=== PATIENT | male | born 1975 | race Caucasian/White ===

== ENCOUNTER 2018-07-29 08:21 | Inpatient (IN) | payer BC ==
[2018-07-29 08:28] VITALS: BMI 33.0
[2018-07-29] MEDS ORDERED: FAMOTIDINE 20 MG/50 ML IVPB 20 MG/50 ML MG IVPB ONE ×2 (09:22→09:37)
[2018-07-29] MEDS ORDERED: SUCRALFATE 1 GM TABLET (FP) PO ONE (09:23)
[2018-07-29] MEDS ORDERED: MAG HYDROX/AL HYDROX/SIMETH -MYLANTA- ORAL SUSPENSION PO ONE (09:23)
[2018-07-29] MEDS ORDERED: SODIUM CHLORIDE 1,000 ML IV STA (09:31)
[2018-07-29] MEDS ORDERED: SUCRALFATE 1 GM TABLET (FP) ONE (09:37)
[2018-07-29] MEDS ORDERED: MAG HYDROX/AL HYDROX/SIMETH 30 ML UNIT-DOSE CUP ONE (09:37)
--- NOTE | 2018-07-29 09:41 | PDOC ---
*Physical Exam - Vital Signs Last Vital Signs Temp Pulse Resp BP Pulse Ox 98.9 F 68 16 150/80 98 07/29/18 08:22 07/29/18 09:10 07/29/18 08:22 07/29/18 08:22 07/29/18 09:10 - Physical Exam Comments: 07/29/18 09:41 The patient was examined by [YARON Mcmahon] under my direct supervision. I personally evaluated the patient. I concur with the above findings and the plan of care. ED Treatment Course - LABORATORY CBC & Chemistry Diagram: 07/30/18 06:10 07/30/18 06:10 - Medications Given in the ED: ED Medications Discontinued Medications Generic Name Dose Route Start Last Admin Trade Name Freq PRN Reason Stop Dose Admin Al Hydroxide/Mg Hydroxide 30 ml 07/29/18 09:23 07/29/18 09:39 Mylanta Suspension - PO 07/29/18 09:24 30 ml ONCE ONE Administration Sucralfate 1 gm 07/29/18 09:23 07/29/18 09:39 Carafate - PO 07/29/18 09:24 1 gm ONCE ONE Administration *DC/Admit/Observation/Transfer Diagnosis at time of Disposition: Epigastric abdominal pain, Black stools - Discharge Dispostion Disposition: HOME Condition at time of disposition: Fair - Prescriptions - Referrals - Patient Instructions - Post Discharge Activity
[2018-07-29 09:58] LABS: BASO % 0.5 % (0-2.0); EOS % 0.5 % (0-4.5); HEMOGLOBIN 13.4 GM/dL (11.7-16.9); LYMPH % 10.9 % (8-40); MCHC 33.5 g/dl (32.0-35.9); MEAN CELL VOLUME 92.5 fl (80-96); MEAN PLT VOLUME 7.7 fl (7.5-11.1); NEUT % 80.1 % (42.8-82.8); PLATELET COUNT 213 K/MM3 (134-434); RBC 4.33 M/mm3 (4.00-5.60); RDW 13.1 % (11.9-15.9); WHITE BLOOD COUNT 14.1 K/mm3 (4.0-10.0)
[2018-07-29 09:59] LABS: URINE APPEARANCE CLEAR; URINE BILIRUBIN NEGATIVE (<2.0 mg/dL); URINE COLOR DKYELLOW; URINE GLUCOSE (UA) 3+ (NEGATIVE); URINE KETONE TRACE (NEGATIVE); URINE LEUK ESTERASE NEGATIVE (NEGATIVE); URINE NITRITE NEGATIVE (NEGATIVE); URINE PROTEIN 3+ (NEGATIVE); URINE UROBILINOGEN NEGATIVE mg/dL (0.2-1.0)
[2018-07-29 10:04] LABS: URINE HYALINE CAST 1 /lpf; URINE MUCUS FEW
--- NOTE | 2018-07-29 10:04 | PDOC ---
History of Present Illness - General Chief Complaint: Pain, Acute Stated Complaint: STOMACH PAIN Time Seen by Provider: 07/29/18 08:39 History Source: Patient - History of Present Illness Timing/Duration: reports: other (yesterday) Quality: reports: sharpness Abdominal Pain Onset Location: reports: epigastric Pain Radiation: reports: no radiation Past History - Past Medical History Allergies/Adverse Reactions: Allergies Allergy/AdvReac Type Severity Reaction Status Date / Time No Known Allergies Allergy Verified 07/29/18 08:23 Home Medications: Ambulatory Orders Simvastatin [Zocor -] 10 mg PO DAILY #0 tablet 06/12/12 Apixaban [Eliquis] 5 mg PO BID 07/29/18 Insulin Glargine,Hum.rec.anlog [Lantus Solostar PEN (NF)] 24 units SQ HS Ramipril [Altace] 10 mg PO DAILY 07/29/18 Sitagliptin Phos/Metformin HCl [Janumet 50-1,000 mg Tablet] 1 each PO BID Cardiac Disorders: Yes (P.EMBOLISM AND DVT LEFT GROIN) COPD: No Diabetes: Yes - Suicide/Smoking/Psychosocial Hx Smoking Status: Yes Smoking History: Former smoker Have you smoked in the past 12 months: No Number of Cigarettes Smoked Daily: 2 Information on smoking cessation initiated: No 'Breaking Loose' booklet given: 06/11/12 Hx Alcohol Use: No Substance Use Type: None Hx Substance Use Treatment: No Review of Systems - Review of Systems Constitutional: No: Chills, Fever Respiratory: No: Shortness of Breath Cardiac (ROS): No: Chest Pain, Lightheadedness, Palpitations ABD/GI: No: Nausea, Vomiting : No: Burning, Dysuria *Physical Exam - Vital Signs Last Vital Signs Temp Pulse Resp BP Pulse Ox 98.9 F 68 16 150/80 98 07/29/18 08:22 07/29/18 09:10 07/29/18 08:22 07/29/18 08:22 07/29/18 09:10 - Physical Exam General Appearance: Yes: Appropriately Dressed, Mild Distress HEENT: positive: Normal Voice Neck: positive: Supple Respiratory/Chest: positive: Normal Breath Sounds, Respiratory Distress Cardiovascular: positive: Regular Rate, S1, S2 Gastrointestinal/Abdominal: positive: Normal Bowel Sounds, Tender (sig ttp to epigatrium, no ttp to RUQ), Soft. negative: Distended, Guarding, Rebound Musculoskeletal: negative: CVA Tenderness Integumentary: positive: Dry, Warm Neurologic: positive: Fully Oriented, Alert, Normal Mood/Affect Heart Score/ECG Review - ECG Intrepretation Comment:: 07/29/18 10:31 Twelve-lead EKG was performed and reviewed by me. There is normal sinus rhythm with a normal rate. The axis is normal. The intervals are normal. There are no ST or T wave abnormalities. Impression: Normal twelve-lead EKG ED Treatment Course - LABORATORY CBC & Chemistry Diagram: 07/29/18 09:53 07/29/18 09:53 Medical Decision Making - Medical Decision Making 07/29/18 09:34 42 yo M, unclear psych hx, NIDDM, HTN, HLD, s/p surgery for varicose veins, s/p surgery remotely, DVT, PE, s/p filter, on eliquis, here w/ upper abd pain. Pt developed severe sharp constant epigastric pain yesterday while at work. No CP otherwise and no SOB, n/v palpitation or acute LE pain. Had 1 e/o "black stool" several days ago, no BRBPR, constipation or diarrhea. Denies f/c. No h/o similar pain. Denies excessive ETOH use but admits to frequent NSAID use. No h/ o gallstones or renal stones See exam Possible gastritis/GERD, r/o ACS, less likely PE or dissection -GI cocktail -ekg/cxr/labs r/o other source -reassess 07/29/18 12:49 Labs remarkable for WBC of 14 and guaiac + stool. H/H stable. Case d/w PMD and pt admitted. Dr Conn of GI consulted *DC/Admit/Observation/Transfer Diagnosis at time of Disposition: Epigastric abdominal pain, Black stools - Discharge Dispostion Condition at time of disposition: Fair Decision to Admit order: Yes - Referrals Referrals: Danilo Obrien MD [Primary Care Provider] - - Patient Instructions - Post Discharge Activity
[2018-07-29 10:32] LABS: ALBUMIN 2.9 g/dl (3.4-5.0); ALK PHOS 95 U/L (45-117); ANION GAP 8 MMOL/L (8-16); BILIRUBIN,TOTAL 0.8 mg/dL (0.2-1); BLOOD UREA NITROGEN 13 mg/dL (7-18); CALCIUM 9.1 mg/dL (8.5-10.1); CHLORIDE 100 mmol/L (98-107); CO2 28 mmol/L (21-32); CREATININE 0.9 mg/dL (0.55-1.3); GLUCOSE,RANDOM 219 mg/dL (74-106); LIPASE 631 U/L (73-393); POTASSIUM 4.7 mmol/L (3.5-5.1); SGOT/AST 13 U/L (15-37); SGPT/ALT 24 U/L (13-61); SODIUM 136 mmol/L (136-145); TOT PROT 7.2 g/dl (6.4-8.2)
--- NOTE | 2018-07-29 11:16 | EKG ---
Test Reason : Blood Pressure : / mmHG Vent. Rate : 069 BPM Atrial Rate : 069 BPM P-R Int : 130 ms QRS Dur : 094 ms QT Int : 382 ms P-R-T Axes : -03 028 028 degrees QTc Int : 409 ms NORMAL SINUS RHYTHM NORMAL ECG WHEN COMPARED WITH ECG OF 11-JUN-2012 17:35, NO SIGNIFICANT CHANGE WAS FOUND Confirmed by CASSANDRA OQUENDO MD ([id number]) on 07/29/2018 11:16:18 AM Referred By: Confirmed By:CASSANDRA OQUENDO MD
[2018-07-29] MEDS ORDERED: PANTOPRAZOLE SODIUM 40 MG VIAL IVPUSH ONE (11:28)
[2018-07-29] MEDS ORDERED: PANTOPRAZOLE SODIUM 40 MG/100 ML BAG IVPB ONE (11:46)
[2018-07-29] MEDS ORDERED: morphine CARPU-JECT 4 MG/1 ML DISP.SYRIN IVPUSH ONE (13:05)
[2018-07-29] MEDS ORDERED: morphine SULFATE 4 MG/ML VIAL ONE (13:25)
[2018-07-29] MEDS ORDERED: SODIUM CHLORIDE 1,000 ML IV SCH (17:00)
--- NOTE | 2018-07-29 17:38 | HP ---
Admitting History and Physical - Primary Care Physician PCP: Danilo Obrien - Admission Chief Complaint: epigastric pain History of Present Illness: developed epigastric pain 2 days ago, had one episode of melena, so he stopped eliquis(taken for recurrent DVT) and took 2 aleeves twice daily for pain. pain got worse so he came to er yesterday had brown BM, no blood History Source: Patient Limitations to Obtaining History: No Limitations - Past Medical History Cardiovascular: Yes: HTN, Hyperlipdemia Pulmonary: Yes: Pulmonary Embolus (DVT) Infectious Disease: Yes: MRSA (2005) Endocrine: Yes: Diabetes Mellitus - Past Surgical History Past Surgical History: Yes: Hernia Repair, Vein Stripping/Ligation Additional Past Surgical History: IVC filter 2005 - Smoking History Smoking history: Former smoker Have you smoked in the past 12 months: No Aproximately how many cigarettes per day: 2 - Alcohol/Substance Use Hx Alcohol Use: No History of Substance Use: reports: None - Social History ADL: Independent History of Recent Travel: No Home Medications - Allergies Allergies/Adverse Reactions: Allergies Allergy/AdvReac Type Severity Reaction Status Date / Time No Known Allergies Allergy Verified 07/29/18 08:23 - Home Medications Home Medications: Ambulatory Orders Simvastatin [Zocor -] 10 mg PO DAILY #0 tablet 06/12/12 Apixaban [Eliquis] 5 mg PO BID 07/29/18 Insulin Glargine,Hum.rec.anlog [Lantus Solostar PEN (NF)] 24 units SQ HS Ramipril [Altace] 10 mg PO DAILY 07/29/18 Sitagliptin Phos/Metformin HCl [Janumet 50-1,000 mg Tablet] 1 each PO BID Family Disease History - Family Disease History Family History: Unremarkable Review of Systems - Review of Systems Constitutional: reports: No Symptoms Neck: reports: No Symptoms Cardiovascular: reports: No Symptoms Respiratory: reports: No Symptoms Gastrointestinal: reports: Abdominal Pain (epigastric). denies: Dysphagia, Indigestion, Nausea, Rectal Bleeding, Vomiting, Vomiting Blood Genitourinary: reports: No Symptoms Musculoskeletal: reports: No Symptoms Integumentary: reports: No Symptoms Neurological: reports: No Symptoms Endocrine: reports: No Symptoms Physical Examination Vital Signs: Vital Signs Temperature 100 F H 07/29/18 13:49 Pulse Rate 75 07/29/18 13:49 Respiratory Rate 16 07/29/18 13:49 Blood Pressure 140/77 07/29/18 13:49 O2 Sat by Pulse Oximetry (%) 99 07/29/18 13:49 Constitutional: Yes: Well Nourished, No Distress, Calm Eyes: Yes: EOM Intact HENT: Yes: Normocephalic Neck: Yes: Trachea Midline Cardiovascular: Yes: Regular Rate and Rhythm Respiratory: Yes: CTA Bilaterally Gastrointestinal: Yes: Normal Bowel Sounds, Soft, Abdomen, Obese, Hernia ( ventral), Tenderness, Epigastrium. No: Tenderness, Rebound, Vomiting Musculoskeletal: Yes: WNL Extremities: Yes: Other (both legs with support socks, reported stasis ulcer by patient, refuses to take socks off) Edema: No Peripheral Pulses WNL: Yes Neurological: Yes: WNL ...Motor Strength: WNL Psychiatric: Yes: WNL Labs: CBC, BMP 07/29/18 09:53 07/29/18 09:53 Imaging - Results Chest X-ray: Report Reviewed EKG: Report Reviewed Problem List - Problems (1) Venous thromboembolism Code(s): I82.90 - ACUTE EMBOLISM AND THROMBOSIS OF UNSPECIFIED VEIN (2) Diabetes mellitus Code(s): E11.9 - TYPE 2 DIABETES MELLITUS WITHOUT COMPLICATIONS Qualifiers: Diabetes mellitus type: type 2 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-term use Diabetes mellitus complication status: with skin complications Diabetes mellitus complication detail: with dermatitis Qualified Code(s): E11.620 - Type 2 diabetes mellitus with diabetic dermatitis; 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 (3) Hypertension Code(s): I10 - ESSENTIAL (PRIMARY) HYPERTENSION Qualifiers: Hypertension type: essential hypertension Qualified Code(s): I10 - Essential (primary) hypertension (4) Hyperlipidemia Code(s): E78.5 - HYPERLIPIDEMIA, UNSPECIFIED Qualifiers: Hyperlipidemia type: unspecified Qualified Code(s): E78.5 - Hyperlipidemia , unspecified (5) Black stools Code(s): K92.1 - MELENA (6) Elevated lipase Code(s): R74.8 - ABNORMAL LEVELS OF OTHER SERUM ENZYMES (7) Epigastric abdominal pain Code(s): R10.13 - EPIGASTRIC PAIN (8) Fever Code(s): R50.9 - FEVER, UNSPECIFIED Qualifiers: Fever type: unspecified Qualified Code(s): R50.9 - Fever, unspecified Assessment/Plan EGD tonight r/o ulcer hold chronic AC for now, monitor CBC PPI iv RISS for sugar only iv fluids NPO repeat enzymes in am would leticia price and hold statin for now
--- NOTE | 2018-07-29 17:47 | CON.GI ---
Consult Consult Specialty:: GI Referred by:: Dr. Obrien - History of Present Illness Chief Complaint: Epigastric pain guiac positive stool. History of Present Illness: 42 Y M w pmhx DVT s/p IVC filter presently on eliquis. He stopped eliquis two days ago. He started taking aleeve for the past 3 days and today developed moderate to severe epigastric pain associated with guaiac positive stool. He denies rectal bleeding, melena, dysphagia, and weight loss. - Alcohol/Substance Use Hx Alcohol Use: No - Smoking History Smoking history: Former smoker Have you smoked in the past 12 months: No Aproximately how many cigarettes per day: 2 Home Medications - Allergies Allergies/Adverse Reactions: Allergies Allergy/AdvReac Type Severity Reaction Status Date / Time No Known Allergies Allergy Verified 07/29/18 08:23 - Home Medications Home Medications: Ambulatory Orders Simvastatin [Zocor -] 10 mg PO DAILY #0 tablet 06/12/12 Apixaban [Eliquis] 5 mg PO BID 07/29/18 Insulin Glargine,Hum.rec.anlog [Lantus Solostar PEN (NF)] 24 units SQ HS Ramipril [Altace] 10 mg PO DAILY 07/29/18 Sitagliptin Phos/Metformin HCl [Janumet 50-1,000 mg Tablet] 1 each PO BID Physical Exam-GI Vital Signs: Vital Signs Temperature 100 F H 07/29/18 13:49 Pulse Rate 75 07/29/18 13:49 Respiratory Rate 16 07/29/18 13:49 Blood Pressure 140/77 07/29/18 13:49 O2 Sat by Pulse Oximetry (%) 99 07/29/18 13:49 Constitutional: Yes: Well Nourished Eyes: Yes: Conjunctiva Clear HENT: Yes: Atraumatic Neck: Yes: Trachea Midline Cardiovascular: Yes: Regular Rate and Rhythm Respiratory: Yes: CTA Bilaterally ...Palpate: Yes: Soft, Tenderness, Epigastium. No: Firm/Rigid, Guarding, Hepatomegaly, Mass, Pulsatile Mass, Splenomegaly, Tenderness Labs: CBC, BMP 07/29/18 09:53 07/29/18 09:53 CMP Sodium 136 mmol/L (136-145) 07/29/18 09:53 Potassium 4.7 mmol/L (3.5-5.1) 07/29/18 09:53 Chloride 100 mmol/L (98-107) 07/29/18 09:53 Carbon Dioxide 28 mmol/L (21-32) 07/29/18 09:53 Anion Gap 8 MMOL/L (8-16) 07/29/18 09:53 BUN 13 mg/dL (7-18) 07/29/18 09:53 Creatinine 0.9 mg/dL (0.55-1.3) 07/29/18 09:53 Creat Clearance w eGFR > 60 (>60) 07/29/18 09:53 Random Glucose 219 mg/dL (74-106) H 07/29/18 09:53 Calcium 9.1 mg/dL (8.5-10.1) 07/29/18 09:53 Total Bilirubin 0.8 mg/dL (0.2-1) 07/29/18 09:53 AST 13 U/L (15-37) L 07/29/18 09:53 ALT 24 U/L (13-61) 07/29/18 09:53 Alkaline Phosphatase 95 U/L (45-117) 07/29/18 09:53 Creatine Kinase 61 IU/L (26-308) 07/29/18 09:53 Troponin I < 0.02 ng/ml (0.00-0.05) 07/29/18 09:53 Total Protein 7.2 g/dl (6.4-8.2) 07/29/18 09:53 Albumin 2.9 g/dl (3.4-5.0) L 07/29/18 09:53 Lipase 631 U/L (73-393) H 07/29/18 09:53 Home Medications Medication Instructions Recorded Simvastatin [Zocor -] 10 mg PO DAILY #0 tablet 06/12/12 Apixaban [Eliquis] 5 mg PO BID 07/29/18 Insulin Glargine,Hum.rec.anlog 24 units SQ HS 07/29/18 [Lantus Solostar PEN (NF)] Ramipril [Altace] 10 mg PO DAILY 07/29/18 Sitagliptin Phos/Metformin HCl 1 each PO BID 07/29/18 [Janumet 50-1,000 mg Tablet] Problem List - Problems (1) Epigastric abdominal pain Assessment/Plan: associated with guiac positive stools R> For EGD IV Protonix Code(s): R10.13 - EPIGASTRIC PAIN (2) Fever Assessment/Plan: etiology unclear R>consider to panculture Code(s): R50.9 - FEVER, UNSPECIFIED (3) Elevated lipase Assessment/Plan: r/o secondary to statin use, doubt pancreatitis Code(s): R74.8 - ABNORMAL LEVELS OF OTHER SERUM ENZYMES
[2018-07-29] MEDS ORDERED: PROMETHAZINE HCL 25 MG/1 ML VIAL IVPUSH PRN (18:19)
[2018-07-29] MEDS ORDERED: ONDANSETRON 4 MG/2 ML VIAL IVPUSH PRN (18:19)
[2018-07-29] MEDS: LACTATED RINGERS SOLUTION 1,000 ML IV SCH (20:00)
[2018-07-29] MEDS ORDERED: PT OWN MED DRAWER 7, Y5N ONE (21:11)
[2018-07-29] MEDS: INSULIN SLIDING SCALE (NOVOLOG) 1 VIAL SQ SCH (22:30)
[2018-07-29] MEDS: PANTOPRAZOLE SODIUM 40 MG VIAL IVPB SCH (22:31)
[2018-07-30] MEDS: LACTATED RINGERS SOLUTION 1,000 ML IV SCH (03:00)
--- NOTE | 2018-07-30 04:53 | PN ---
GI Progress Note Subjective: no active bleeding, no melena, no abdominal pain - Objective Vital Signs: Vital Signs Temperature 99 F 07/30/18 01:18 Pulse Rate 73 07/30/18 01:18 Respiratory Rate 20 07/30/18 01:18 Blood Pressure 138/72 07/30/18 01:18 O2 Sat by Pulse Oximetry (%) 97 07/29/18 21:30 Constitutional: Well Nourished Eyes: Yes: Conjunctiva Clear HENT: Yes: Atraumatic Neck: Yes: Supple Cardiovascular: Yes: Regular Rate and Rhythm Respiratory: Yes: CTA Bilaterally ...Palpate: Yes: Soft. No: Firm/Rigid, Guarding, Hepatomegaly, Mass, Pulsatile Mass, Splenomegaly, Tenderness, Tenderness, Epigastium Labs: CBC, BMP 07/29/18 09:53 07/29/18 09:53 Problem List - Problems (1) Epigastric abdominal pain Assessment/Plan: --resolved Code(s): R10.13 - EPIGASTRIC PAIN (2) Fever Code(s): R50.9 - FEVER, UNSPECIFIED (3) Elevated lipase Code(s): R74.8 - ABNORMAL LEVELS OF OTHER SERUM ENZYMES (4) Gastric ulcer Assessment/Plan: noted bleeding, s/p endoclip R>Protonix 40mg bid for 1 week then daily resume Eliquis today advance diet Code(s): K25.9 - GASTRIC ULCER, UNSP ACUTE OR CHRONIC, W/O HEMOR OR PERF
[2018-07-30] MEDS ORDERED: ACETAMINOPHEN 1000 MG/100 ML VIAL (NON FORMULARY) IVPB PRN (05:35)
[2018-07-30] MEDS: INSULIN SLIDING SCALE (NOVOLOG) 1 VIAL SQ SCH ×2 (06:46→11:50)
[2018-07-30 07:00] LABS: BASO % 0.5 % (0-2.0); EOS % 1.9 % (0-4.5); HEMATOCRIT 37.2 % (35.4-49); HEMOGLOBIN 12.1 GM/dL (11.7-16.9); LYMPH % 16.7 % (8-40); MCH 30.1 pg (25.7-33.7); MCHC 32.5 g/dl (32.0-35.9); MEAN CELL VOLUME 92.6 fl (80-96); MEAN PLT VOLUME 7.7 fl (7.5-11.1); MONO % 8.1 % (3.8-10.2); NEUT % 72.8 % (42.8-82.8); PLATELET COUNT 214 K/MM3 (134-434); RBC 4.02 M/mm3 (4.00-5.60); RDW 13.2 % (11.9-15.9)
[2018-07-30 07:33] LABS: ALBUMIN 2.5 g/dl (3.4-5.0); ALK PHOS 87 U/L (45-117); AMYLASE 63 U/L (25-115); ANION GAP 8 MMOL/L (8-16); BILIRUBIN,TOTAL 0.6 mg/dL (0.2-1); BLOOD UREA NITROGEN 11 mg/dL (7-18); CALCIUM 8.8 mg/dL (8.5-10.1); CHLORIDE 104 mmol/L (98-107); CO2 27 mmol/L (21-32); CREATININE 0.8 mg/dL (0.55-1.3); GLUCOSE,RANDOM 121 mg/dL (74-106); LIPASE 314 U/L (73-393); POTASSIUM 4.1 mmol/L (3.5-5.1); SGOT/AST 10 U/L (15-37); SGPT/ALT 17 U/L (13-61); SODIUM 139 mmol/L (136-145); TOT PROT 6.4 g/dl (6.4-8.2)
[2018-07-30] MEDS: PANTOPRAZOLE SODIUM 40 MG VIAL IVPB SCH (10:30)
[2018-07-30 14:33] VITALS: BP 131/68; PULSE 69; TEMP 97.9
--- NOTE | 2018-07-30 15:55 | PN ---
Progress Note (short form) - Note Progress Note: CBC, BMP 07/30/18 06:10 07/30/18 06:10 Vital Signs Period Temp Pulse Resp BP Sys/[place] Pulse Ox Last 24 Hr 97.9 F-100.3 F 67-97 14-24 118-144/55-82 96-100 S1S2 RRR lungs cta abd soft NT +BS no edema legs wrapped in support socks and tammie bandage UGIbleed s/p EGD and clipping yesterday CBC good no further pain, no bleeding low grade fever resolved, WBC decreasing advance diet resume eliquis tonight dc planning if tolerates diet amylase, lipase normalized, elevation was likely drug induced Problem List - Problems (1) Venous thromboembolism Code(s): I82.90 - ACUTE EMBOLISM AND THROMBOSIS OF UNSPECIFIED VEIN (2) Diabetes mellitus Code(s): E11.9 - TYPE 2 DIABETES MELLITUS WITHOUT COMPLICATIONS Qualifiers: Diabetes mellitus type: type 2 Diabetes mellitus [facility] insulin use: with [facility] use Diabetes mellitus complication status: with skin complications Diabetes mellitus complication detail: with dermatitis Qualified Code(s): E11.620 - Type 2 diabetes mellitus with diabetic dermatitis; Z79.4 - oil heaterman (current) use of insulin (3) Hypertension Code(s): I10 - ESSENTIAL (PRIMARY) HYPERTENSION Qualifiers: Hypertension type: essential hypertension Qualified Code(s): I10 - Essential (primary) hypertension (4) Hyperlipidemia Code(s): E78.5 - HYPERLIPIDEMIA, UNSPECIFIED Qualifiers: Hyperlipidemia type: unspecified Qualified Code(s): E78.5 - Hyperlipidemia , unspecified (5) Black stools Code(s): K92.1 - MELENA (6) Elevated lipase Code(s): R74.8 - ABNORMAL LEVELS OF OTHER SERUM ENZYMES (7) Epigastric abdominal pain Code(s): R10.13 - EPIGASTRIC PAIN (8) Fever Code(s): R50.9 - FEVER, UNSPECIFIED Qualifiers: Fever type: unspecified Qualified Code(s): R50.9 - Fever, unspecified
--- NOTE | 2018-07-30 17:01 | DS ---
Physical Examination Vital Signs: Vital Signs Temperature 97.9 F 07/30/18 14:32 Pulse Rate 69 07/30/18 14:32 Respiratory Rate 18 07/30/18 14:32 Blood Pressure 131/68 07/30/18 14:32 O2 Sat by Pulse Oximetry (%) 97 07/29/18 21:30 Constitutional: Yes: No Distress, Calm Eyes: Yes: EOM Intact HENT: Yes: Normocephalic Neck: Yes: Trachea Midline Cardiovascular: Yes: Regular Rate and Rhythm Respiratory: Yes: CTA Bilaterally Gastrointestinal: Yes: Normal Bowel Sounds, Soft, Abdomen, Obese. No: Palpable Mass, Tenderness, Tenderness, Epigastrium, Tenderness, Rebound, Vomiting Musculoskeletal: Yes: WNL Edema: No Neurological: Yes: WNL Labs: CBC, BMP 07/30/18 06:10 07/30/18 06:10 Discharge Summary Reason For Visit: BLACK STOOLS,EPIGASTRIC PAIN Current Active Problems Black stools (Acute) Diabetes mellitus (Acute) Elevated lipase (Acute) Epigastric abdominal pain (Acute) Fever (Acute) Gastric ulcer (Acute) Hyperlipidemia (Acute) Hypertension (Acute) Venous thromboembolism (Acute) Hospital Course: admitted for melena, epigastric pain: s/p EGD and clipping of non-bleeding gastric ulcer yesterday no further pain, no bleeding low grade fever resolved, WBC decreasing, CBC good tolerating regular diet resume eliquis tonight amylase, lipase normalized, elevation was likely drug induced stop statin and januvia f/up in office within 5 days Condition: Fair - Instructions Diet, Activity, Other Instructions: no hot, no spicy, no fatty foods no advil/aleeve/naproxen/ibuprofen/motrin may take tylenol for fever or pain f/up in office within 5 days Referrals: Danilo Obrien MD [Primary Care Provider] - - Home Medications Comprehensive Discharge Medication List: Ambulatory Orders Apixaban [Eliquis] 5 mg PO BID 07/29/18 Insulin Glargine,Hum.rec.anlog [Lantus Solostar PEN (NF)] 24 units SQ HS Ramipril [Altace] 10 mg PO DAILY 07/29/18 Metformin HCl [Glucophage] 1,000 mg PO BID #60 tablet 07/30/18 Pantoprazole Sodium [Protonix] 40 mg PO BID #30 tablet. 07/30/18
[2018-07-30] MEDS ORDERED: APIXABAN 5 MG TABLET PO SCH (22:00)
[2018-07-30] MEDS ORDERED: INSULIN (LEVEMIR) 100 UNITS/ML UNITS SQ SCH (22:00)
== END 2018-07-30 17:59 | disposition home or self-care (01) | DRG 358 ==
LOC: JER 08:21 → JERBED 13:00 → J7W 20:25
PROVIDERS: ADMIT Internal Medicine; ATTEND Internal Medicine
PROC: 0W3P4ZZ Control Bleeding in Gastrointestinal Tract, Percutaneous Endoscopic Approach (ICD-10-PCS; principal; 2018-07-29 15:30)
DX: K25.4 Chronic or unspecified gastric ulcer with hemorrhage (principal); E11.9 Type 2 diabetes mellitus without complications; E78.5 Hyperlipidemia, unspecified; I10 Essential (primary) hypertension; R50.9 Fever, unspecified; R10.13 Epigastric pain
CPT/HCPCS: 36415; 71045-TC-FY; 80053; 81003; 81015; 82150; 82272; 82550; 82962; 83690; 84484; 85025; 87081; 93005; 93010; 94760; 99285-25; J7030

== ENCOUNTER 2024-01-29 09:01 | Emergency (ER) | payer BC ==
[2024-01-29 09:14] VITALS: BMI 28.7
[2024-01-29] MEDS ORDERED: DIPHTH,PERTUSS(ACELL),TET 0.5 ML DISP.SYRIN IM ONE (10:12)
[2024-01-29] MEDS: DIPHTH,PERTUSS(ACELL),TET 0.5 ML DISP.SYRIN IM ONE (10:12)
[2024-01-29 10:37] LABS: BASO % 1.1 % (0-2.0); EOS % 4.2 % (0-4.5); HEMATOCRIT 37.2 % (35.4-49); HEMOGLOBIN 12.8 GM/dL (11.7-16.9); LYMPH % 24.6 % (8-40); MCH 30.9 pg (25.7-33.7); MCHC 34.4 g/dl (32.0-35.9); MEAN PLT VOLUME 7.7 fl (7.5-11.1); MONO % 6.8 % (3.8-10.2); NEUT % 63.3 % (42.8-82.8); PLATELET COUNT 268 10^3/uL (134-434); RBC 4.13 M/mm3 (4.00-5.60); RDW 13.5 % (11.9-15.9); WHITE BLOOD COUNT 8.2 K/mm3 (4.0-10.0)
[2024-01-29 10:53] LABS: POTASSIUM 4.8 mmol/L (3.5-5.1)
[2024-01-29 10:55] LABS: CALCIUM 9.6 mg/dL (8.5-10.1)
[2024-01-29 10:56] LABS: ALBUMIN 3.5 g/dl (3.4-5.0); BLOOD UREA NITROGEN 30.8 mg/dL (7-18)
[2024-01-29 10:59] LABS: CREATININE 1.5 mg/dL (0.55-1.3)
[2024-01-29 11:01] LABS: BILIRUBIN,TOTAL 0.6 mg/dL (0.2-1); TOT PROT 7.6 g/dl (6.4-8.2)
[2024-01-29 11:24] LABS: ERYTHROCYTE SEDIMENTATION RATE 50 mm/hr (0-20)
[2024-01-29] MEDS: SODIUM CHLORIDE 0.9% 500 ML INFUS.BAG IV ONE (11:30)
[2024-01-29 12:58] VITALS: BP 129/78; PULSE 66; RESP 16; TEMP 98.4
== END 2024-01-29 12:55 | disposition home or self-care (01) ==
LOC: JER 09:01
PROC: 3E0234Z Introduction of Serum, Toxoid and Vaccine into Muscle, Percutaneous Approach (ICD-10-PCS; principal; 2024-01-29)
DX: H02.846 Edema of left eye, unspecified eyelid (principal); S05.92XA Unspecified injury of left eye and orbit, initial encounter; W01.198A Fall on same level from slipping, tripping and stumbling with subsequent striking against other object, initial encounter; Y92.000 Kitchen of unspecified non-institutional (private) residence as the place of occurrence of the external cause; Z23 Encounter for immunization
CPT/HCPCS: 36415; 70450-TC; 70486-TC; 80053; 82962; 85025; 85651; 86140; 90715; 99284-25